=== PATIENT | male | born 1945 | race Caucasian/White ===

== ENCOUNTER → 2017-12-26 | Outpatient (CLI) | payer MEDICARE ==
[~2017-12-26] MED LIST: DAYPRO600 M1 PO; MS CONTIN30 MG PO; ROBAXIN500 M1 PO; SKELAXIN800 MG PO
[2017-12-26 08:57] LABS: CREATININE 0.88 mg/dL (0.70-1.30)
== END | disposition home or self-care (01) ==
LOC: LAB 08:29 → CT 09:00
PROVIDERS: Internal Medicine Hematology & Oncology
DX: I25.10 Atherosclerotic heart disease of native coronary artery without angina pectoris (principal); K76.89 Other specified diseases of liver; C67.2 Malignant neoplasm of lateral wall of bladder

== ENCOUNTER → 2018-03-19 | Outpatient (CLI) | payer MEDICARE | END | disposition home or self-care (01) | LOC: LAB 13:22 | DX: N39.0 Urinary tract infection, site not specified (principal) ==

== ENCOUNTER 2019-04-24 22:47 | Emergency (ER) | payer MEDICARE ==
[~2019-04-24] VITALS: Ht 175.2 cm; Wt 99.8 kg
[2019-04-24] MEDS ORDERED: NEURONTIN300 MG PO (22:55)
[2019-04-24] MEDS ORDERED: LOSARTAN POTASS50 M1 PO (22:56)
[2019-04-24] MEDS ORDERED: TRAMADOL HCL50 MG PO (23:35)
== END 2019-04-24 23:56 | disposition home or self-care (01) ==
LOC: ED 22:47
DX: R04.0 Epistaxis (principal); G43.909 Migraine, unspecified, not intractable, without status migrainosus; Z79.899 Other long term (current) drug therapy

== ENCOUNTER → 2019-10-15 | Outpatient (CLI) | payer MEDICARE ==
[~2019-10-15] MED LIST changes: +ASPIRIN ADULT L81 M1 PO; +FINASTERIDE5 M1 PO; +LOSARTAN POTASS50 M1 PO; +NEURONTIN300 MG PO; +NEURONTIN600 MG PO; +TRAMADOL HCL50 MG PO; +ZOLOFT25 MG PO
== END | disposition home or self-care (01) ==
LOC: RAD 16:23
DX: R05 Cough (principal)